=== PATIENT | female | born 1990 | race Caucasian/White ===

== ENCOUNTER 2016-10-09 14:50 | Outpatient (CLI) | payer BC ==
[~2016-10-09] VITALS: Ht 175.3 cm; Wt 114.5 kg
[2016-10-09 15:28] VITALS: BP 119/63
[2016-10-09 16:26] LABS: ASPARTATE AMINO TRANSFERASE 18 U/L (15-37); BLOOD UREA NITROGEN 6 mg/dL (7-18)
== END 2016-10-09 17:15 | disposition home or self-care (01) ==
LOC: LDOP 14:50
PROVIDERS: ATTEND Obstetrics & Gynecology
DX: O13.3 Gestational [pregnancy-induced] hypertension without significant proteinuria, third trimester (principal); Z3A.35 35 weeks gestation of pregnancy
CPT/HCPCS: 36415; 59025; 80053; 81003; 82248; 82570; 84156; 84550; 85025; 99201; 99211; G0463

== ENCOUNTER 2016-11-02 15:52 | Outpatient (CLI) | payer BC ==
[~2016-11-02] VITALS: Ht 175.3 cm; Wt 122.0 kg
[2016-11-02 16:59] LABS: BLOOD UREA NITROGEN 7 mg/dL (7-18)
[2016-11-02 17:02] LABS: ASPARTATE AMINO TRANSFERASE 15 U/L (15-37)
== END 2016-11-02 17:29 | disposition home or self-care (01) ==
LOC: LDOP 15:52
PROVIDERS: ATTEND Obstetrics & Gynecology
DX: O13.3 Gestational [pregnancy-induced] hypertension without significant proteinuria, third trimester (principal); O26.893 Other specified pregnancy related conditions, third trimester; R51 Headache; Z3A.39 39 weeks gestation of pregnancy
CPT/HCPCS: 36415; 59025; 80053; 81003; 82248; 82570; 84156; 84550; 85025; 99211; G0463

== ENCOUNTER 2016-11-10 15:03 | Inpatient (IN) | payer BC ==
[~2016-11-10] VITALS: Ht 175.3 cm; Wt 137.0 kg
[2016-11-16] MEDS ORDERED: NEWBORN KIT ONE (04:56)
[2016-11-16] MEDS ORDERED: OXYTOCIN 30U/ 0.9% NaCL 500ML 0 ML ONE (04:56)
[2016-11-16] MEDS ORDERED: MISOPROSTOL 200 MCG TABLET ONE (04:56)
[2016-11-16] MEDS ORDERED: LIDOCAINE 1%, 20ML ONE ×2 (04:56→21:15)
[2016-11-16 05:00] VITALS: BP 141/87
[2016-11-16] MEDS ORDERED: OXYTOCIN 30U/ 0.9% NaCL 500ML 500 ML IV ONE (05:08)
[2016-11-16] MEDS ORDERED: OXYTOCIN 30U/ 0.9% NaCL 500ML 500 ML IV PRN (05:08)
[2016-11-16] MEDS ORDERED: MISOPROSTOL 25 MCG TABLET ONE ×2 (05:17→10:01)
[2016-11-16] MEDS: LACTATED RINGERS 1,000 ML IV SCH ×3 (05:20→22:00)
[2016-11-16] MEDS ORDERED: CALCIUM CARBONATE 500 MG TAB.CHEW PO PRN (05:30)
[2016-11-16] MEDS ORDERED: FENTANYL PF 100 MCG/2ML IV PRN (05:30)
[2016-11-16] MEDS ORDERED: ONDANSETRON 2MG/ML, 2ML IVPush PRN (05:30)
[2016-11-16] MEDS ORDERED: TERBUTALINE 1 MG/ML, 1ML SQ PRN (05:30)
[2016-11-16] MEDS: MISOPROSTOL 25 MCG TABLET VG PRN ×2 (05:35→10:00)
[2016-11-16] MEDS ORDERED: OXYTOCIN 30U/ 0.9% NaCL 500ML 500 ML ONE (14:17)
[2016-11-16] MEDS ORDERED: FENTANYL PF 100 MCG/2ML ONE ×3 (17:43→21:15)
[2016-11-16] MEDS: FENTANYL PF 100 MCG/2ML IVPush PRN ×2 (17:45→20:28)
[2016-11-16] MEDS: D5%-LACTATED RINGERS 1,000 ML IV SCH ×2 (18:14→21:08)
[2016-11-16] MEDS ORDERED: ONDANSETRON 2MG/ML, 2ML ONE (18:43)
[2016-11-16] MEDS ORDERED: LIDOCAINE 2%, 20ML ONE (21:15)
[2016-11-16] MEDS ORDERED: BUPIVACAINE 0.25% ONE (21:15)
[2016-11-16] MEDS ORDERED: FENTANYL/BUPIV./NS/PF 250 ML EPIDCONT ONE (21:15)
[2016-11-16] MEDS ORDERED: LIDOCAINE/PF 1.5%-EPI 1:200K, 30ML ONE (21:15)
[2016-11-16] MEDS ORDERED: FENTANYL/BUPIV./NS/PF 250 ML EPIDCONT SCH (22:03)
[2016-11-16] MEDS ORDERED: LACTATED RINGERS 1,000 ML IVBOLUS PRN (22:30)
[2016-11-16] MEDS ORDERED: EPHEDRINE 50 MG/ML, 1ML IVPush PRN (22:30)
[2016-11-16] MEDS ORDERED: NALOXONE 0.4 MG/ML, 1ML IVPush PRN (22:30)
[2016-11-17] MEDS: LACTATED RINGERS 1,000 ML IV SCH ×9 (04:00→22:10)
[2016-11-17] MEDS: D5%-LACTATED RINGERS 1,000 ML IV SCH ×3 (05:08→13:08)
[2016-11-17] MEDS ORDERED: GENTAMICIN IV STA (12:50)
[2016-11-17] MEDS ORDERED: SODIUM CHLORIDE 0.9% IV STA (12:50)
[2016-11-17] MEDS ORDERED: ACETAMINOPHEN 500 MG TABLET PO STA (13:08)
[2016-11-17] MEDS ORDERED: ACETAMINOPHEN 325 MG TABLET ONE (13:34)
[2016-11-17] MEDS: AMPICILLIN 2 GM in SODIUM CHLORIDE 0.9% 100 ML IV SCH ×2 (13:40→19:52)
[2016-11-17] MEDS ORDERED: PHARMACOKINETIC MONITORING MC PRN (14:00)
[2016-11-17] MEDS ORDERED: GENTAMICIN IV SCH (14:00)
[2016-11-17] MEDS ORDERED: PHARMACOKINETIC CONSULTATION MC ONE (14:00)
[2016-11-17] MEDS ORDERED: SODIUM CHLORIDE 0.9% IV SCH (14:00)
[2016-11-17] MEDS ORDERED: GENTAMICIN PER PHARMACY MC PRN ×2 (14:00→17:00)
[2016-11-17] MEDS ORDERED: METOCLOPRAMIDE 5 MG/ML, 2ML ONE (14:09)
[2016-11-17] MEDS ORDERED: SODIUM CITRATE/CITRIC ACID 30 ML UDC ONE (14:09)
[2016-11-17] MEDS ORDERED: OXYTOCIN 30U/ 0.9% NaCL 500ML 500 ML ONE (14:09)
[2016-11-17] MEDS ORDERED: BUPIVACAINE/PF 0.25% ONE (14:26)
[2016-11-17] MEDS ORDERED: FENTANYL PF 100 MCG/2ML ONE ×2 (14:26→14:50)
[2016-11-17] MEDS ORDERED: METOCLOPRAMIDE 5 MG/ML, 2ML IV ONE (14:30)
[2016-11-17] MEDS ORDERED: LACTATED RINGERS 1,000 ML IVBOLUS ONE (14:30)
[2016-11-17] MEDS ORDERED: SODIUM CITRATE/CITRIC ACID 30 ML UDC PO ONE (14:30)
[2016-11-17] MEDS ORDERED: BUPIVACAINE 0.25% ONE (14:50)
[2016-11-17] MEDS ORDERED: EPHEDRINE 50 MG/ML, 1ML ONE (14:50)
[2016-11-17] MEDS ORDERED: PHENYLEPHRINE 10 MG/ML ONE (14:50)
[2016-11-17] MEDS ORDERED: LIDOCAINE 2%, 20ML ONE (14:50)
[2016-11-17] MEDS ORDERED: PROPOFOL 10 MG/ML, 20ML ONE (14:50)
[2016-11-17] MEDS ORDERED: morphine SULFATE/PF 0.5 MG/ML, 10ML ONE (15:23)
[2016-11-17] MEDS ORDERED: MEPERIDINE/PF 50 MG/ML ONE (15:29)
[2016-11-17] MEDS ORDERED: KETOROLAC 30 MG/1 ML ONE (16:41)
[2016-11-17] MEDS ORDERED: CLINDAMYCIN PMX 900MG/50ML 50 ML IV SCH (17:00)
[2016-11-17] MEDS ORDERED: CLINDAMYCIN PMX 900MG/50ML 50 ML ONE (17:12)
[2016-11-17] MEDS: CLINDAMYCIN PMX 900MG/50ML 50 ML IV SCH (17:20)
[2016-11-17] MEDS: OXYTOCIN 30U/ 0.9% NaCL 500ML 500 ML IV SCH ×2 (17:22→17:32)
[2016-11-17] MEDS ORDERED: SIMETHICONE 80 MG CHEW TAB PO PRN (17:30)
[2016-11-17] MEDS ORDERED: MISOPROSTOL 200 MCG TABLET PR PRN (17:30)
[2016-11-17] MEDS ORDERED: KETOROLAC 30 MG/1 ML IM ONE (17:30)
[2016-11-17] MEDS ORDERED: CALCIUM CARBONATE 500 MG TAB.CHEW PO PRN (17:30)
[2016-11-17] MEDS ORDERED: OXYcodone IR 5MG TABLET PO PRN (17:30)
[2016-11-17] MEDS ORDERED: morphine SULFATE 10 MG/ML, 1ML IVPush PRN ×2 (17:30)
[2016-11-17] MEDS ORDERED: KETOROLAC 30 MG/1 ML IV ONE (17:30)
[2016-11-17] MEDS ORDERED: ONDANSETRON 2MG/ML, 2ML IV PRN (17:30)
[2016-11-17] MEDS: KETOROLAC 30 MG/1 ML IV SCH ×2 (17:31→23:37)
[2016-11-17 18:00] VITALS: BP 108/64
[2016-11-17 19:30] VITALS: BP 110/62
[2016-11-17] MEDS: OXYcodone IR 5MG TABLET PO PRN (22:05)
[2016-11-17] MEDS ORDERED: GENTAMICIN 440 MG in SODIUM CHLORIDE 0.9% 100 ML IV SCH (22:30)
[2016-11-17] MEDS: ACETAMINOPHEN 325 MG TABLET PO SCH (23:41)
[2016-11-17 23:58] VITALS: BP 130/70
[2016-11-18] MEDS: OXYTOCIN 30U/ 0.9% NaCL 500ML 500 ML IV SCH ×2 (00:10→03:22)
[2016-11-18] MEDS: CLINDAMYCIN PMX 900MG/50ML 50 ML IV SCH ×2 (00:42→11:31)
[2016-11-18] MEDS: LACTATED RINGERS 1,000 ML IV SCH ×5 (01:22→17:22)
[2016-11-18] MEDS: AMPICILLIN 2 GM in SODIUM CHLORIDE 0.9% 100 ML IV SCH ×2 (01:46→10:03)
[2016-11-18] MEDS: OXYcodone IR 5MG TABLET PO PRN ×4 (01:56→17:24)
[2016-11-18 04:00] VITALS: BP 105/62
[2016-11-18] MEDS: ACETAMINOPHEN 325 MG TABLET PO SCH ×4 (06:02→23:23)
[2016-11-18] MEDS: KETOROLAC 30 MG/1 ML IV SCH ×2 (06:02→11:32)
[2016-11-18 06:46] LABS: BLOOD UREA NITROGEN 5 mg/dL (7-18)
[2016-11-18 07:30] VITALS: BP 106/56
[2016-11-18] MEDS: PRENATAL VIT/IRON/FA 1 EACH TABLET PO SCH (08:54)
[2016-11-18] MEDS: DOCUSATE 100 MG CAPSULE PO PRN ×2 (08:54→21:47)
[2016-11-18 12:12] VITALS: BP 116/67
[2016-11-18] MEDS ORDERED: GENTAMICIN PER PHARMACY MC PRN (16:00)
[2016-11-18] MEDS: IBUPROFEN 600 MG TABLET PO SCH ×2 (17:24→23:23)
[2016-11-18 19:30] VITALS: BP 103/57
[2016-11-18] MEDS: FERROUS GLUCONATE 324 MG TABLET PO SCH (21:47)
[2016-11-19] MEDS: LACTATED RINGERS 1,000 ML IV SCH ×3 (01:22→17:22)
[2016-11-19] MEDS: IBUPROFEN 600 MG TABLET PO SCH ×3 (05:32→17:48)
[2016-11-19] MEDS: ACETAMINOPHEN 325 MG TABLET PO SCH ×3 (05:33→17:48)
[2016-11-19 06:58] VITALS: BP 120/82
[2016-11-19] MEDS: DOCUSATE 100 MG CAPSULE PO PRN (07:28)
[2016-11-19] MEDS: FERROUS GLUCONATE 324 MG TABLET PO SCH ×2 (07:28→17:48)
[2016-11-19] MEDS: PRENATAL VIT/IRON/FA 1 EACH TABLET PO SCH (07:28)
[2016-11-19] MEDS: OXYcodone IR 5MG TABLET PO PRN ×3 (07:28→17:48)
[2016-11-19 20:10] VITALS: BP_SYST 109; BP_SYST 127; BP_DIAS 64; BP_DIAS 69
[2016-11-20] MEDS: ACETAMINOPHEN 325 MG TABLET PO SCH ×4 (00:35→18:20)
[2016-11-20] MEDS: IBUPROFEN 600 MG TABLET PO SCH ×4 (00:35→18:20)
[2016-11-20] MEDS: OXYcodone IR 5MG TABLET PO PRN ×4 (00:35→18:25)
[2016-11-20] MEDS: LACTATED RINGERS 1,000 ML IV SCH ×2 (01:22→09:22)
[2016-11-20 07:30] VITALS: BP 109/59
[2016-11-20] MEDS ORDERED: OXYcodone IR 5MG TABLET ONE (10:50)
[2016-11-20] MEDS: FERROUS GLUCONATE 324 MG TABLET PO SCH ×2 (10:52→18:20)
[2016-11-20] MEDS: PRENATAL VIT/IRON/FA 1 EACH TABLET PO SCH (10:52)
[2016-11-20] MEDS: DOCUSATE 100 MG CAPSULE PO PRN ×2 (10:52→20:07)
[2016-11-20 20:05] VITALS: BP 125/73
[2016-11-21] MEDS: OXYcodone IR 5MG TABLET PO PRN ×3 (00:39→10:32)
[2016-11-21] MEDS: ACETAMINOPHEN 325 MG TABLET PO SCH ×3 (00:39→12:43)
[2016-11-21] MEDS: IBUPROFEN 600 MG TABLET PO SCH ×3 (00:39→12:42)
[2016-11-21] MEDS ORDERED: IBUP-1222 PO ×2 (05:04→08:58)
[2016-11-21] MEDS ORDERED: DOCU-30 PO ×2 (05:05→08:58)
[2016-11-21] MEDS ORDERED: OXYC-302 PO ×2 (05:08→08:59)
[2016-11-21 07:00] VITALS: BP 127/75
[2016-11-21] MEDS: DOCUSATE 100 MG CAPSULE PO PRN (07:59)
[2016-11-21] MEDS: PRENATAL VIT/IRON/FA 1 EACH TABLET PO SCH (07:59)
[2016-11-21] MEDS: FERROUS GLUCONATE 324 MG TABLET PO SCH (07:59)
== END 2016-11-21 13:06 | disposition home or self-care (01) | DRG 765 ==
LOC: LDIP 11-16 04:51 → 2NW 11-17 17:54
PROVIDERS: ADMIT Obstetrics & Gynecology; ATTEND Obstetrics & Gynecology
PROC: 10D00Z1 Extraction of Products of Conception, Low, Open Approach (ICD-10-PCS; principal; 2016-11-17)
PROC: 10907ZC Drainage of Amniotic Fluid, Therapeutic from Products of Conception, Via Natural or Artificial Opening (ICD-10-PCS; 2016-11-17)
PROC: 3E0P7GC Introduction of Other Therapeutic Substance into Female Reproductive, Via Natural or Artificial Opening (ICD-10-PCS; 2016-11-17)
DX: O48.0 Post-term pregnancy (principal); O41.1230 Chorioamnionitis, third trimester, not applicable or unspecified; Z68.41 Body mass index [BMI] 40.0-44.9, adult; O77.0 Labor and delivery complicated by meconium in amniotic fluid; O62.0 Primary inadequate contractions; E66.9 Obesity, unspecified; O99.214 Obesity complicating childbirth; O76 Abnormality in fetal heart rate and rhythm complicating labor and delivery; O42.92 Full-term premature rupture of membranes, unspecified as to length of time between rupture and onset of labor; O13.4 Gestational [pregnancy-induced] hypertension without significant proteinuria, complicating childbirth; O90.81 Anemia of the puerperium; D64.9 Anemia, unspecified; Z37.0 Single live birth; Z3A.40 40 weeks gestation of pregnancy
CPT/HCPCS: 36415; 82565; 82803; 84520; 85025; 86850; 86900; J0290; J1885; J2175; J2274; J2405; J2704; J3010; J3490; J1580; J2370; J2590; J2765; J7120; J7121